=== PATIENT | male | born 1990 | race African-American/Black ===

== ENCOUNTER 2017-03-28 12:55 | Emergency (ER) | payer MEDICAID ==
[~2017-03-28] VITALS: Ht 180.3 cm; Wt 66.0 kg
[2017-03-28] MEDS ORDERED: ACETAMINOPHEN 325MG TABLET PO ONE (15:15)
[2017-03-28 16:57] VITALS: BP 127/75
== END 2017-03-28 17:02 | disposition home or self-care (01) ==
LOC: ER 14:48
DX: M25.531 Pain in right wrist (principal); M25.50 Pain in unspecified joint; M25.561 Pain in right knee; F12.10 Cannabis abuse, uncomplicated; F17.200 Nicotine dependence, unspecified, uncomplicated; W10.9XXA Fall (on) (from) unspecified stairs and steps, initial encounter; Y93.39 Activity, other involving climbing, rappelling and jumping off; Y92.89 Other specified places as the place of occurrence of the external cause; Y99.8 Other external cause status
CPT/HCPCS: 73110; 73130; 73552; 73562; 99284

== ENCOUNTER 2024-01-09 11:33 | Emergency (ER) | payer MEDICAID, OTHER ==
[~2024-01-09] VITALS: Ht 180.3 cm; Wt 65.8 kg
[2024-01-09 11:38] VITALS: O2SAT 100
[2024-01-09] MEDS: HYDROCODONE/ACETAMINOPHEN 5/325MG TABLET PO STA (13:35)
[2024-01-09] MEDS ORDERED: NAPR-681 PO (15:22)
[2024-01-09] MEDS ORDERED: TRAM50TA3 PO (15:22)
[2024-01-09 15:53] VITALS: BP 104/78; PULSE 106; RESP 16; TEMP 98.4
== END 2024-01-09 15:54 | disposition home or self-care (01) ==
LOC: ER 11:33
DX: M50.21 Other cervical disc displacement, high cervical region (principal); M47.9 Spondylosis, unspecified; F12.10 Cannabis abuse, uncomplicated
CPT/HCPCS: 99284